=== PATIENT | female | born 1945 | race Caucasian/White ===

== ENCOUNTER 2022-05-06 06:15 | Day surgery (SDC) | payer SELFPAY ==
[2022-05-01 15:43] VITALS: BMI 20.3
[2022-05-06] MEDS ORDERED: MIDAZOLAM HCL 2 MG/2 ML SINGLE DOSE VIAL ONE (07:09)
[2022-05-06] MEDS ORDERED: ERYTHROMYCIN 0.5% OPHTHALMIC OINTMENT 3.5 GM TUBE ONE (07:10)
[2022-05-06] MEDS ORDERED: PROPOFOL 20 ML ONE ×2 (07:10→08:16)
[2022-05-06] MEDS ORDERED: ceFAZolin SODIUM 1 GM VIAL ONE ×2 (07:10→08:16)
[2022-05-06] MEDS ORDERED: EPINEPHrine/PF 1 MG/1 ML (1:1,000) AMPULE ONE (07:11)
[2022-05-06] MEDS ORDERED: LIDOCAINE HCL 1%, 10 MG/ML (20ML VIAL) ONE (07:11)
[2022-05-06] MEDS ORDERED: POVIDONE-IODINE 5% OPHTHALMIC PREP 30 ML SOLUTION ONE (07:11)
[2022-05-06] MEDS ORDERED: TETRACAINE 0.5% OPHTH SOLN 2 ML BOTTLE ONE (07:11)
[2022-05-06] MEDS ORDERED: BUPIVACAINE HCL 50 ML ONE (07:11)
[2022-05-06] MEDS ORDERED: SUCCINYLCHOLINE CHLORIDE 200 MG/10 ML SYRINGE ONE (07:15)
[2022-05-06] MEDS ORDERED: LIDOCAINE HCL/PF 2% SDV 5ML VIAL ONE (07:15)
[2022-05-06] MEDS ORDERED: PROPOFOL 60 ML ONE (07:16)
[2022-05-06] MEDS ORDERED: oxyCODONE HCL 5 MG TABLET PO PRN ×2 (07:36)
[2022-05-06] MEDS ORDERED: ONDANSETRON 4 MG/2 ML VIAL IVPUSH PRN (07:36)
[2022-05-06] MEDS ORDERED: LACTATED RINGERS SOLUTION 1,000 ML IV SCH (07:45)
[2022-05-06] MEDS ORDERED: DEXAMETHASONE SOD PHOSPHATE 4 MG/1 ML VIAL ONE (07:55)
[2022-05-06] MEDS ORDERED: SODIUM CHLORIDE 0.9% P/F 10 ML VIAL IJ ONE (08:16)
[2022-05-06] MEDS ORDERED: ONDANSETRON 4 MG/2 ML VIAL ONE (11:20)
[2022-05-06] MEDS ORDERED: ACETAMINOPHEN INJECTION 100 ML IVPB ONE (11:21)
[2022-05-06 11:24] VITALS: RESP 18
[2022-05-06] MEDS ORDERED: ACETAMINOPHEN 1000 MG/100 ML BAG IVPB ONE (11:32)
[2022-05-06 11:41] VITALS: PULSE 73; TEMP 96.3
[2022-05-06 12:22] VITALS: BP 132/64
== END 2022-05-06 12:21 | disposition home or self-care (01) ==
LOC: FASU 06:15
PROVIDERS: ATTEND Ophthalmology
PROC: 080N0ZZ Alteration of Right Upper Eyelid, Open Approach (ICD-10-PCS; 2022-05-06)
PROC: 080R0ZZ Alteration of Left Lower Eyelid, Open Approach (ICD-10-PCS; 2022-05-06)
PROC: 080Q0ZZ Alteration of Right Lower Eyelid, Open Approach (ICD-10-PCS; 2022-05-06)
PROC: 0W020ZZ Alteration of Face, Open Approach (ICD-10-PCS; 2022-05-06)
PROC: 0HB1XZZ Excision of Face Skin, External Approach (ICD-10-PCS; 2022-05-06)
PROC: 080P0ZZ Alteration of Left Upper Eyelid, Open Approach (ICD-10-PCS; principal; 2022-05-06 08:20)
DX: H02.834 Dermatochalasis of left upper eyelid (principal); H02.831 Dermatochalasis of right upper eyelid; H57.813 Brow ptosis, bilateral; H02.9 Unspecified disorder of eyelid
CPT/HCPCS: 88304-TC; 94760